=== PATIENT | male | born 1950 | race African-American/Black ===

== ENCOUNTER 2019-12-07 10:15 | Day surgery (SDC) | payer OTHER ==
[2019-12-06 15:43] VITALS: BMI 22.6
[2019-12-07 11:14] LABS: PH,URINE 5.5 (5.0-8.0); URINE APPEARANCE CLEAR; URINE BILIRUBIN NEGATIVE (NEGATIVE); URINE COLOR YELLOW; URINE GLUCOSE (UA) NEGATIVE (NEGATIVE); URINE KETONE TRACE (NEGATIVE); URINE LEUK ESTERASE NEGATIVE (NEGATIVE); URINE NITRITE NEGATIVE (NEGATIVE); URINE PROTEIN TRACE (NEGATIVE); URINE UROBILINOGEN 0.2 mg/dL (0.2-1.0)
--- NOTE | 2019-12-07 11:47 | HP ---
History & Physical Update - History History: No Change - Physical Physical: No Change - Assessment Assessment: No Change - Plan Plan: No Change
--- NOTE | 2019-12-07 11:49 | OP ---
Operative Note - Note: Operative Date: 12/07/19 Pre-Operative Diagnosis: prostate cancer Operation: prostate cryoablation and cystoscopy Post-Operative Diagnosis: Same as Pre-op Surgeon: Jose Mckee Anesthesiologist/CONSERVATION ENFORCEMENT OFFICER: Santos Saavedra Anesthesia: General Estimated Blood Loss (mls): 0 Drains & Tubes with Location: 18 fr boogie Operative Report Dictated: Yes
[2019-12-07] MEDS ORDERED: ceFAZolin SODIUM 1 GM VIAL IVPB ONE (12:25)
[2019-12-07] MEDS ORDERED: PROMETHAZINE HCL 25 MG/1 ML VIAL IVPB PRN (13:03)
[2019-12-07] MEDS ORDERED: oxyCODONE HCL 5 MG TABLET PO PRN (13:03)
[2019-12-07] MEDS ORDERED: ONDANSETRON 4 MG/2 ML VIAL IVPUSH PRN (13:03)
--- NOTE | 2019-12-07 14:15 | OP ---
DATE OF OPERATION: 12/07/2019 PREOPERATIVE DIAGNOSIS: Prostate cancer. POSTOPERATIVE DIAGNOSIS: Prostate cancer. PROCEDURE: Prostate cryoablation and cystoscopy. SURGEON: Jose Huerta MD FAMILY PRACTICE MEDICAL DOCTOR: None. ANESTHESIA: General via laryngeal mask. ANESTHESIOLOGIST: Santos Saavedra MD SPECIMENS: None. CULTURES: None. DRAINS: An 18-Citizen Of [place] Brady catheter. ESTIMATED BLOOD LOSS: None. COMPLICATIONS: None. DESCRIPTION OF PROCEDURE: Patient was brought in the operating room. Placed on the operating room table in supine position. After administration of general anesthesia via laryngeal mask, intravenous antibiotics were administered. Sequential compression devices were placed. Patient was placed in a dorsal lithotomy position. Genitals and perineum were prepped and draped in usual sterile manner, 18-Citizen [place] Brady catheter was placed per urethra, 10 mL was placed in the balloon. Urine was evacuated, and the bladder was filled with 400 mL of sterile normal saline and clamped. Now Ioban drape was placed elevating the scrotum. Transrectal ultrasound probe was inserted per rectum, and transrectal ultrasound of the prostate was done. Measurements and plan were done for a focal, left-sided cryoablation. Once the plan was devised, the 3 cryoablation probes were placed in the appropriate location and then 2 temperature sensors were placed, 1 in Denonvilliers' fascia, 1 in the external sphincter. Now the prostate cryoablation plan was done. After the plan was done, the needles were in the proper position. Confirmed on both longitudinal and transverse scans on the ultrasound. Now the Brady catheter was removed. Flexible cystoscopy was performed demonstrating normal anterior the urethra. Prostatic urethra measured approximately 4-1/2 cm in length and demonstrated moderate bilobar occlusion. There were no probes penetrating the urethra. The bladder was entered, thoroughly inspected. There were no foreign bodies, tumors, stones, inflammation. Both ureteral orifices were in their usual location with clear efflux bilaterally. No stones penetrated the bladder. The scope was retroflexed upon the bladder neck, and no probes penetrated the bladder. Now a Super Stiff guidewire was passed through the cystoscope into the bladder, and the cystoscope was removed. Urethral warmer was passed over the guidewire. The guidewire was removed. Urethral warming was started. Now the cryoablation was started. Two freeze/thaw cycles were done. At the end, the ablation probes and the temperature sensors were removed leaving the urethral warmer in place for an additional 5 minutes. Manual pressure on the perineum achieved hemostasis. The wound was sterilely dressed with bacitracin, 4 x 4, and Tegaderm. An 18-Citizen [place] Brady catheter was replaced, placed on gravity drainage with 10 mL, and the balloon returned clear. He tolerated the procedure well, transferred to recovery in stable condition. JOSE HUERTA M.D. [id number]
[2019-12-07 19:17] VITALS: BP 125/83; PULSE 74; TEMP 97.9
== END 2019-12-07 17:05 | disposition home or self-care (01) ==
LOC: JASU-SURG 10:15
PROVIDERS: ATTEND Urology
PROC: 0V503ZZ Destruction of Prostate, Percutaneous Approach (ICD-10-PCS; principal; 2019-12-07 12:00)
DX: C61 Malignant neoplasm of prostate (principal)
CPT/HCPCS: 55873; C2618; 81003; 94760